=== PATIENT | female | born 1935 | race Caucasian/White ===

== ENCOUNTER 2017-03-16 21:06 | Emergency (ER) | payer MEDICARE ==
[2017-03-16] MEDS ORDERED: Ciprofloxacin 500 MG TAB ONE (21:35)
[2017-03-16] MEDS ORDERED: HYDROcodone/Acetaminophen 5/325 mg Tablet ONE (21:35)
[2017-03-16 21:41] LABS: Bilirubin Small (Negative); Blood, Urine Large (Negative); Clarity Cloudy (Clear); Glucose, Urine (Dipstick) Negative (Negative); Leukocyte Small (Negative); Nitrite Negative (Negative); Protein, Urine (Dipstick) > or equal to 300 mg/dL (Neg-Trace)
[2017-03-16 21:42] LABS: RBC/HPF GREATER THAN 50-TNTC HPF (0-3); Specific Gravity, Urine 1.028 (1.002-1.036)
[2017-03-16 21:46] LABS: Bacteria/HPF Rare-Few HPF (None Seen); Squamous Epithelial 0-3 HPF (0-3); WBC/HPF 0-3 HPF (0-3)
== END 2017-03-16 21:44 | disposition home or self-care (01) ==
LOC: BURERS 21:06
DX: N30.01 Acute cystitis with hematuria (principal); E11.9 Type 2 diabetes mellitus without complications; E78.5 Hyperlipidemia, unspecified; E78.00 Pure hypercholesterolemia, unspecified; I10 Essential (primary) hypertension
CPT/HCPCS: 81003; 81015; 87086; 99283

== ENCOUNTER 2021-03-12 00:25 | Emergency (ER) | payer MEDICARE ==
[2021-03-12 01:25] LABS: Anion Gap 15 mmol/L (10-20); BUN (Urea Nitrogen) 33 mg/dL (9.8-20.1); Calc. Creatinine Clearance 0 mL/min (70-130); Calcium 9.5 mg/dL (7.8-10.44); Carbon Dioxide 26 mmol/L (23-31); Chloride 99 mmol/L (98-107); Glucose 398 mg/dL (83-110); Potassium 4.2 mmol/L (3.5-5.1); Sodium 136 mmol/L (136-145)
== END 2021-03-12 01:40 | disposition home or self-care (01) ==
LOC: BURERS 00:25
DX: E11.65 Type 2 diabetes mellitus with hyperglycemia (principal); I10 Essential (primary) hypertension; E78.5 Hyperlipidemia, unspecified; E78.00 Pure hypercholesterolemia, unspecified; Z79.84 Long term (current) use of oral hypoglycemic drugs; Z79.899 Other long term (current) drug therapy
CPT/HCPCS: 36415; 80048; 99284

== ENCOUNTER 2022-04-10 16:27 | Outpatient (CLI) | payer MEDICARE | END 2022-04-10 16:28 | disposition home or self-care (01) | LOC: BURRAD 16:27 | PROVIDERS: ATTEND Nurse Practitioner Family | DX: S20.20XA Contusion of thorax, unspecified, initial encounter (principal); J98.11 Atelectasis | CPT/HCPCS: 71046 ==

== ENCOUNTER 2024-10-21 20:40 | Emergency (ER) | payer MEDICARE ==
[2024-10-21] MEDS ORDERED: Amoxicillin/Potassium Clav 875 MG TAB ONE (20:53)
[2024-10-21] MEDS ORDERED: Boostrix 0.5 ML (Tdap) VIAL (>/=7 yrs of age) ONE (21:01)
[2024-10-21] MEDS ORDERED: Cephalexin 250 MG CAP ONE (21:01)
== END 2024-10-21 21:22 | disposition home or self-care (01) ==
LOC: BURERS 20:40
DX: S61.451A Open bite of right hand, initial encounter (principal); S61.411A Laceration without foreign body of right hand, initial encounter; E11.9 Type 2 diabetes mellitus without complications; I10 Essential (primary) hypertension; W55.01XA Bitten by cat, initial encounter; Z23 Encounter for immunization; Z79.84 Long term (current) use of oral hypoglycemic drugs
CPT/HCPCS: 90471; 90715